=== PATIENT | male | born 1975 | race African-American/Black ===

== ENCOUNTER 2017-10-26 20:53 | Emergency (ER) | payer OTHER ==
[~2017-10-26] VITALS: Ht 190.5 cm; Wt 86.2 kg
[2017-10-26] MEDS ORDERED: IBUPROFEN 800800 M1 PO ×2 (21:00→21:31)
[2017-10-26] MEDS ORDERED: DAY TIME COLD-1 EACH PO (21:01)
[2017-10-26] MEDS ORDERED: PREDNISONE 20 M20 M1 PO (21:31)
[2017-10-26] MEDS ORDERED: BENZONATATE200 MG PO (21:31)
[2017-10-26 21:38] VITALS: BP 112/73
== END 2017-10-26 21:39 | disposition home or self-care (01) ==
LOC: M.ERS 20:53
DX: J20.8 Acute bronchitis due to other specified organisms (principal); F17.210 Nicotine dependence, cigarettes, uncomplicated; Z91.013 Allergy to seafood

== ENCOUNTER 2017-11-06 13:40 | Emergency (ER) | payer OTHER ==
[~2017-11-06] VITALS: Ht 190.5 cm; Wt 86.2 kg
[~2017-11-06 13:40] MED LIST: BENZONATATE200 MG PO; DAY TIME COLD-1 EACH PO; IBUPROFEN 800800 M1 PO; PREDNISONE 20 M20 M1 PO
[2017-11-06] MEDS ORDERED: NAPROSYN500 M1 PO (15:10)
[2017-11-06] MEDS ORDERED: FLEXERIL PO (15:10)
[2017-11-06 15:34] VITALS: BP 131/85
== END 2017-11-06 15:35 | disposition home or self-care (01) ==
LOC: M.ERS 13:40
DX: M54.5 Low back pain (principal); F17.200 Nicotine dependence, unspecified, uncomplicated; Z91.013 Allergy to seafood; V89.2XXA Person injured in unspecified motor-vehicle accident, traffic, initial encounter; Y93.I9 Activity, other involving external motion; Y92.89 Other specified places as the place of occurrence of the external cause; Y99.8 Other external cause status